=== PATIENT | male | born 1930 | race Caucasian/White ===

== ENCOUNTER → 2016-11-27 | Outpatient (CLI) | payer OTHER ==
--- NOTE | ~2016-11-27 | 2DMMODE ---
[facility] [address] [place] [address] 2 D/M-MODE ECHOCARDIOGRAM Name: RADHAMES AJ Grzegorz Room #: REG [facility]#: [id number] Admission: 11/27/16 Attend Phys: Scot Lara MD Discharge: Date of : [birth year] Date of Service: 11/27/16 1552 Report #: [id number] THIS REPORT FOR: //name// APPROVED REPORT Study performed: 11/27/2016 13:02:06 EXAM: Comprehensive 2D, Doppler, and color-flow Echocardiogram Patient Location: Out-Patient Blood Pressure: 138/82 mmHg HR: 70 bpm Other Information Study Quality: Adequate Indications Mitral Valve Disease Aortic Valve Disease 2D Dimensions RVDd: 33.43 mm LVEF(%): 54.62 (>50%) IVSd: 10.96 (7-11mm) LVOT Diam: 21.64 (18-24mm) LVDd: 45.38 mm PWd: 10.92 (7-11mm) Ascending Aorta: 37.19 mm LVDs: 32.58 (25-40mm) Aortic Root: 35.37 mm Apple's LVEF: 54.62 % Volumes Left Atrial Volume (Systole) Single Plane 4CH: 54.87 mL Single Plane 2CH: 61.75 mL LA ESV Index: 31.00 mL/m2 Aortic Valve AoV Peak Oli.: 2.72 m/s AO Peak Gr.: 29.61 mmHg LV Max P.76 mmHg AO Mean Gr.: 16.68 mmHg LV Mean P.54 mmHg LV Max: 1.09 m/s AO V2 VTI: 560.61 mm LV Mean: 0.75 m/s HARSH (VTI): 1.57 cm2 LV V1 VTI: 239.09 mm SV (LVOT): 87.86 mL Mitral Valve [facility] [place] [address] 2 D/M-MODE ECHOCARDIOGRAM Name: RADHAMES AJ Room #: [facility]#: [id number] Admission: 11/27/16 Attend Phys: Scot Lara MD Discharge: Date of : [birth year] Date of Service: 11/27/16 [facility] Report #: [id number] E/A Ratio: 1.2 MV Decel. Time: 197.25 ms MV E Max Oli.: 1.06 m/s MV A Oli.: 0.88 m/s MV PHT: 57.20 ms Pulmonary Valve PV Peak Oli.: 1.13 m/s PV Peak Gr.: 5.13 mmHg Pulmonary Vein P Vein S: 47.2 m/s P Vein D: 43.9 m/s P Vein A Dur.: 24.7 m/s PVa Duration: 106 Left Ventricle The left ventricle is normal size. There is normal LV segmental wall motion. There is normal left ventricular wall thickness. The left ventricular systolic function is normal. The left ventricular ejection fraction is within the normal range. LVEF is 55-60%. The left ventricular diastolic function is normal. Right Ventricle The right ventricle is normal size. The right ventricular systolic function is normal. Atria The left atrium size is normal. The right atrium size is normal. Aortic Valve Aortic valve is calcified. Trace to mild aortic regurgitation. Mild aortic stenosis. Mitral Valve The mitral valve is normal in structure. Mild mitral regurgitation. No evidence of mitral valve stenosis. Tricuspid Valve The tricuspid valve is normal in structure. The tricuspid valve is normal in structure. Pulmonic Valve The pulmonary valve is normal in structure. There is no pulmonic valvular regurgitation. Great Vessels [facility] [address] [place] [address] 2 D/M-MODE ECHOCARDIOGRAM Name: RADHAMES AJ Room #: REG [facility]#: [id number] Admission: 11/27/16 Attend Phys: Scot Lara MD Discharge: Date of : [birth year] Date of Service: 11/27/16 1552 Report #: [id number] The aortic root is normal in size. IVC is not well visualized. Pericardium There is no pericardial effusion. <Conclusion> The left ventricular systolic function is normal. There is normal LV segmental wall motion.LVEF is 55-60%. Aortic valve is calcified, trileaflet. Trace to mild aortic regurgitation. Mild aortic stenosis. The mitral valve is normal in structure. Mild mitral regurgitation. Pulmonary artery pressure could not be ascertained There is no pericardial effusion. <ELECTRONICALLY SIGNED> By: Genaro Mays MD, [facility] 11/27/161551 51 51 Genaro Mays MD, FAC /INF
== END ==
LOC: CV 11:15 → ULTRA 12:48 → CV 12:48
DX: I08.0 Rheumatic disorders of both mitral and aortic valves (principal); I34.0 Nonrheumatic mitral (valve) insufficiency; R09.89 Other specified symptoms and signs involving the circulatory and respiratory systems